=== PATIENT | female | born 1975 | race Caucasian/White ===

== ENCOUNTER → 2017-07-17 | Day surgery (SDC) | payer OTHER ==
[~2017-07-17] MED LIST: LIPITOR TAB 2020 MG PO; PRILOSEC OTC20 MG PO; TRAZODONE HCL50 MG PO
== END | disposition home or self-care (01) ==
LOC: OR 08:14
PROVIDERS: Internal Medicine Gastroenterology
PROC: 0DB68ZX Excision of Stomach, Via Natural or Artificial Opening Endoscopic, Diagnostic (ICD-10-PCS; principal; 2017-07-17 10:45)
DX: K29.50 Unspecified chronic gastritis without bleeding (principal); K21.9 Gastro-esophageal reflux disease without esophagitis; E66.3 Overweight; F17.200 Nicotine dependence, unspecified, uncomplicated; Z68.27 Body mass index [BMI] 27.0-27.9, adult; Z71.6 Tobacco abuse counseling; Z88.0 Allergy status to penicillin; Z88.5 Allergy status to narcotic agent; Z79.899 Other long term (current) drug therapy
CPT/HCPCS: J2250; J3010; J7030

== ENCOUNTER 2022-06-20 13:49 | Emergency (ER) | payer BC ==
[2022-06-20 14:29] LABS: RED BLOOD COUNT 4.62 M/UL (4.00-5.10); WHITE BLOOD COUNT 4.5 K/UL (4.5-11.0)
[2022-06-20 14:55] LABS: BUN/CREATININE RATIO 8 (0-10)
[2022-06-20] MEDS ORDERED: CYCLOBENZAPRINE10 MG PO (15:52)
[2022-06-20] MEDS ORDERED: IBUPROFEN800 MG PO (15:52)
== END 2022-06-20 16:02 | disposition home or self-care (01) ==
LOC: ER1 13:49
PROVIDERS: Preventive Medicine Occupational Medicine
DX: M50.322 Other cervical disc degeneration at C5-C6 level (principal); I25.10 Atherosclerotic heart disease of native coronary artery without angina pectoris; Z88.0 Allergy status to penicillin; Z88.5 Allergy status to narcotic agent
CPT/HCPCS: 71045; 72125; 80053; 81001; 82550; 82553; 83690; 84484; 85025; 85652; 86140; 93005; 96374; 99284; J1885